=== PATIENT | female | born 1985 ===

== ENCOUNTER 2024-05-11 08:00 | Day surgery (SDC) | payer OTHER ==
[2024-05-11] MEDS ORDERED: SODIUM CHLORIDE 0.9% 500 ML BAG ONE (09:35)
== END 2024-05-11 12:44 | disposition home or self-care (01) ==
LOC: CATHEP 08:00
PROVIDERS: ATTEND Internal Medicine Clinical Cardiac Electrophysiology
DX: R55 Syncope and collapse (principal)
CPT/HCPCS: 93660